=== PATIENT | male | born 1940 | race Caucasian/White ===

== ENCOUNTER 2018-04-21 07:30 | Inpatient (IN) | payer MEDICARE, BC ==
[~2018-04-21 07:30] MED LIST: SODIUM CHLORIDE 0.9% FLUSH 10 ML SOL IV PRN
[2018-04-21] MEDS ORDERED: LACTATED RINGERS 1,000 ML IV ONE (08:00)
[2018-04-21] MEDS ORDERED: SCOPOLAMINE 1.5MG PATCH TD SCH (08:00)
[2018-04-21] MEDS ORDERED: LACTATED RINGERS 1,000 ML IV SCH (09:00)
[2018-04-21] MEDS ORDERED: PROPOFOL 500 MG/50 ML EMU IV ONE (09:55)
[2018-04-21] MEDS ORDERED: MIDAZOLAM 2 MG/2 ML SOL ONE (09:56)
[2018-04-21] MEDS ORDERED: MORPHINE SULFATE 0.5 MG/ML SOL ONE (09:56)
[2018-04-21] MEDS ORDERED: FENTANYL 100MCG/2ML SOL ONE (09:56)
[2018-04-21] MEDS ORDERED: BUPIVACAINE LIPOSOME 20 ML SUS ONE (10:04)
[2018-04-21] MEDS ORDERED: BUPIVACAINE HCL 0.5% MPF 10 ML SOL ONE (10:09)
[2018-04-21] MEDS ORDERED: SODIUM CHLORIDE 20 ML 20 ML ONE (10:20)
[2018-04-21] MEDS ORDERED: CEFAZOLIN SODIUM 1 GM PDS ONE ×2 (10:56→18:32)
[2018-04-21] MEDS: TRANEXAMIC ACID 100 MG/ML SOL ONE ×2 (11:08→12:13)
[2018-04-21] MEDS ORDERED: PHENYLEPHRINE HYDROCHLORIDE 10 MG/ML SOL ONE (11:19)
[2018-04-21] MEDS ORDERED: ALUMINUM/MAGNESIUM 30 ML SUS PO PRN (12:07)
[2018-04-21] MEDS ORDERED: ONDANSETRON 4 MG ODT BU PRN (12:07)
[2018-04-21] MEDS ORDERED: DIAZEPAM 5 MG TAB PO PRN (12:07)
[2018-04-21] MEDS ORDERED: MAGNESIUM HYDROXIDE 30 ML SUS PO PRN (12:07)
[2018-04-21] MEDS ORDERED: BISACODYL 10 MG SUP PR PRN (12:07)
[2018-04-21] MEDS ORDERED: FLEET ENEMA PR PRN (12:07)
[2018-04-21] MEDS ORDERED: SODIUM CHLORIDE 0.9% 500 ML 500 ML IV PRN (12:07)
[2018-04-21] MEDS ORDERED: DIPHENHYDRAMINE 25 MG CAP PO PRN (12:07)
[2018-04-21] MEDS ORDERED: ONDANSETRON HCL 4 MG/2 ML SOL IV PRN (12:07)
[2018-04-21] MEDS ORDERED: TEMAZEPAM 15MG 15 MG CAP PO PRN (12:07)
[2018-04-21] MEDS: DEXTROSE/SALINE 0.45% 1,000 ML IV SCH (14:26)
[2018-04-21] MEDS ORDERED: HYDROMORPHONE 1 MG/ML SYRINGE IV PRN (14:30)
[2018-04-21] MEDS: SODIUM CHLORIDE 0.9% FLUSH 10 ML SOL IV SCH ×2 (14:34→20:28)
[2018-04-21] MEDS: ACETAMINOPHEN 500 MG 500 MG TAB PO SCH ×3 (14:34→20:28)
[2018-04-21] MEDS: CEFAZOLIN (PREMIX) 1 GM 1 GM/50 ML SOL IV SCH (18:43)
[2018-04-21] MEDS: ALUMINUM/MAGNESIUM 30 ML SUS PO SCH (20:26)
[2018-04-21] MEDS: SENNOSIDES A AND B 8.6 MG TAB PO SCH (20:27)
[2018-04-22] MEDS: OXYCODONE HYDROCHLORIDE 5 MG TAB PO PRN ×4 (00:57→19:57)
[2018-04-22] MEDS: DEXTROSE/SALINE 0.45% 1,000 ML IV SCH ×2 (00:57→10:18)
[2018-04-22] MEDS: SODIUM CHLORIDE 0.9% FLUSH 10 ML SOL IV SCH ×4 (00:58→19:57)
[2018-04-22] MEDS: CEFAZOLIN (PREMIX) 1 GM 1 GM/50 ML SOL IV SCH (03:17)
[2018-04-22 07:13] LABS: HEMOGLOBIN 10.3 gm/dl (13.5-17.7); MEAN CORPUSCULAR HEMOGLOBIN 26.9 pg (27.0-32.0); MEAN CORPUSCULAR HGB CONC 32.7 gm/dl (32.0-36.0)
[2018-04-22] MEDS: ACETAMINOPHEN 500 MG 500 MG TAB PO SCH ×4 (08:33→20:14)
[2018-04-22] MEDS: RIVAROXABAN 10 MG TAB PO SCH (08:34)
[2018-04-22] MEDS: MULTIVITAMIN2 1 EA TAB PO SCH (08:34)
[2018-04-22] MEDS ORDERED: [UNRECOGNIZED DRUG - OTHER] PO SCH (09:00)
[2018-04-22] MEDS ORDERED: LOVASTATIN 10 MG TAB PO SCH (09:00)
[2018-04-22] MEDS: SENNOSIDES A AND B 8.6 MG TAB PO SCH (20:14)
[2018-04-22] MEDS: ALUMINUM/MAGNESIUM 30 ML SUS PO SCH (20:14)
[2018-04-23 00:06] VITALS: RESP 16
[2018-04-23] MEDS: DEXTROSE/SALINE 0.45% 1,000 ML IV SCH (00:09)
[2018-04-23] MEDS: OXYCODONE HYDROCHLORIDE 5 MG TAB PO PRN ×4 (01:36→20:13)
[2018-04-23] MEDS: SODIUM CHLORIDE 0.9% FLUSH 10 ML SOL IV SCH ×3 (05:00→20:14)
[2018-04-23 07:44] LABS: HEMOGLOBIN 11.2 gm/dl (13.5-17.7); MEAN CORPUSCULAR HEMOGLOBIN 26.4 pg (27.0-32.0); MEAN CORPUSCULAR HGB CONC 31.6 gm/dl (32.0-36.0)
[2018-04-23] MEDS: RIVAROXABAN 10 MG TAB PO SCH (08:27)
[2018-04-23] MEDS: MULTIVITAMIN2 1 EA TAB PO SCH (08:27)
[2018-04-23] MEDS: LOVASTATIN 20 MG TABLET PO SCH (08:27)
[2018-04-23] MEDS: ACETAMINOPHEN 500 MG 500 MG TAB PO SCH ×4 (08:27→20:14)
[2018-04-23] MEDS: SENNOSIDES A AND B 8.6 MG TAB PO SCH (20:15)
[2018-04-23] MEDS: ALUMINUM/MAGNESIUM 30 ML SUS PO SCH (20:17)
[2018-04-24] MEDS: OXYCODONE HYDROCHLORIDE 5 MG TAB PO PRN (04:30)
[2018-04-24] MEDS: SODIUM CHLORIDE 0.9% FLUSH 10 ML SOL IV SCH ×3 (04:30→20:30)
[2018-04-24 07:20] LABS: HEMOGLOBIN 10.9 gm/dl (13.5-17.7); MEAN CORPUSCULAR HEMOGLOBIN 26.9 pg (27.0-32.0); MEAN CORPUSCULAR HGB CONC 32.2 gm/dl (32.0-36.0)
[2018-04-24] MEDS: RIVAROXABAN 10 MG TAB PO SCH (08:41)
[2018-04-24] MEDS: ACETAMINOPHEN 500 MG 500 MG TAB PO SCH ×4 (08:41→20:31)
[2018-04-24] MEDS: LOVASTATIN 20 MG TABLET PO SCH (08:41)
[2018-04-24] MEDS: MULTIVITAMIN2 1 EA TAB PO SCH (08:41)
[2018-04-24] MEDS: SENNOSIDES A AND B 8.6 MG TAB PO SCH (20:31)
[2018-04-24] MEDS: ALUMINUM/MAGNESIUM 30 ML SUS PO SCH (20:31)
[2018-04-25 00:51] VITALS: TEMP 97.8
[2018-04-25] MEDS: SODIUM CHLORIDE 0.9% FLUSH 10 ML SOL IV SCH ×2 (04:44→12:37)
[2018-04-25] MEDS: RIVAROXABAN 10 MG TAB PO SCH (08:58)
[2018-04-25] MEDS: MULTIVITAMIN2 1 EA TAB PO SCH (08:58)
[2018-04-25] MEDS: ACETAMINOPHEN 500 MG 500 MG TAB PO SCH ×2 (08:58→12:45)
[2018-04-25] MEDS: LOVASTATIN 20 MG TABLET PO SCH (08:58)
[2018-04-25 10:55] VITALS: BP 132/72; PULSE 85; O2SAT 95
== END 2018-04-25 13:30 | disposition home or self-care (01) | DRG 470 ==
LOC: ACUTE CARE 07:30
PROVIDERS: ADMIT Orthopaedic Surgery; ATTEND Orthopaedic Surgery
PROC: F01L5YZ Range of Motion and Joint Integrity Assessment of Musculoskeletal System - Lower Back / Lower Extremity using Other Equipment (ICD-10-PCS; 2018-04-21)
PROC: F01ZDFZ Gait and/or Balance Assessment using Assistive, Adaptive, Supportive or Protective Equipment (ICD-10-PCS; 2018-04-21)
PROC: F01ZBFZ Bed Mobility Assessment using Assistive, Adaptive, Supportive or Protective Equipment (ICD-10-PCS; 2018-04-21)
PROC: 0SRR0J9 Replacement of Right Hip Joint, Femoral Surface with Synthetic Substitute, Cemented, Open Approach (ICD-10-PCS; principal; 2018-04-21 10:00)
PROC: F02Z1FZ Dressing Assessment using Assistive, Adaptive, Supportive or Protective Equipment (ICD-10-PCS; 2018-04-22)
PROC: F02Z3FZ Grooming/Personal Hygiene Assessment using Assistive, Adaptive, Supportive or Protective Equipment (ICD-10-PCS; 2018-04-22)
DX: S72.091A Other fracture of head and neck of right femur, initial encounter for closed fracture (principal); Z96.641 Presence of right artificial hip joint
CPT/HCPCS: 36415; 51798; 73501; 73502; 85027; 93005; 94150; 99070; J0690; J2250; J2274; J3010; A6232; A6402; A9270-GY; J2370; J2704; J3490; L1830; Q3014

== ENCOUNTER 2018-06-02 14:53 | Outpatient (CLI) | payer MEDICARE, BC ==
[2018-04-25 10:55] VITALS: O2SAT 95
== END 2018-06-02 14:54 | disposition home or self-care (01) | DRG 951 ==
LOC: RAD 14:53
PROVIDERS: ATTEND Orthopaedic Surgery
DX: Z98.890 Other specified postprocedural states (principal)
CPT/HCPCS: 73502